=== PATIENT | male | born 1965 | race Caucasian/White ===

== ENCOUNTER 2017-11-22 21:53 | Emergency (ER) | payer BC ==
[~2017-11-22] VITALS: Ht 175.3 cm; Wt 114.1 kg
[~2017-11-22 21:53] MED LIST: CIPRO500 MG PO; DOXYCYCLINE HY100 MG PO; DULOXETINE HCL30 MG PO; ENDOCET 5-3251 EACH PO; JANUVIA100 MG PO; METFORMIN HCL1000 MG PO; METFORMIN HCL500 MG PO; MORPHINE SULFAT15 M1 PO; OMEPRAZOLE40 M1 PO; TIZANIDINE HCL4 MG PO
[2017-11-22 22:41] LABS: HEMATOCRIT 42.9 % (38.0-50.0); HEMOGLOBIN 14.9 G/DL (12.5-16.6); MCH 29.6 PG (29.0-34.0); MCHC 34.7 G/DL (30.0-36.0); MCV 85.3 FL (86-99); PLATELET COUNT 322 K/uL (156-360); RBC DIS.WIDTH-CV 12.5 % (11.8-14.6); RBC DIS.WIDTH-SD 38.3 % (39-53); RED BLOOD COUNT 5.03 M/uL (4.00-5.50); WHITE BLOOD COUNT 7.3 K/uL (4.1-10.2)
[2017-11-22 22:50] LABS: ALBUMIN 4.5 g/dL (3.2-4.8)
[2017-11-22 22:51] LABS: CHLORIDE 108 mEq/L (99-109); POTASSIUM 4.5 mEq/L (3.7-5.4); SODIUM 140 mEq/L (136-147)
[2017-11-22 22:53] LABS: GLUCOSE 125 mg/dL (70-99); TOTAL PROTEIN 7.9 g/dL (6.4-8.3)
[2017-11-22 22:55] LABS: TOTAL BILIRUBIN 0.7 mg/dL (0.0-1.0)
[2017-11-22 22:56] LABS: ALKALINE PHOSPHATASE 101 IU/L (3-129)
[2017-11-22 22:57] LABS: CREATININE 1.1 mg/dL (0.6-1.3); GFR ESTIMATE (CALCULATED) > 59 mL/min/ (58.99-99999)
[2017-11-22 22:58] LABS: AST (GOT) 49 IU/L (2-34); UREA NITROGEN (BUN) 18 mg/dL (9-23)
[2017-11-22 22:59] LABS: ALT (GPT) 73 IU/L (3-49)
[2017-11-22 23:35] LABS: APPEARANCE SL.HAZY ((CLEAR)); BILIRUBIN NEGATIVE; BLOOD LARGE; COLOR YELLOW ((YELLOW)); GLUCOSE (STRIP) NEGATIVE; KETONES NEGATIVE; LEUKOCYTES TRACE; NITRITE NEGATIVE; PROTEIN (STRIP) 30; SPECIFIC GRAVITY 1.026 (1.000-1.030); UROBILINOGEN 0.2 MG/DL (0.2-1.0)
[2017-11-22 23:44] LABS: BACTERIA NONE SEEN /HPF; EPITHELIAL CELLS RARE /HPF; MUCUS 2+ /LPF; RED BLOOD CELLS TNTC /HPF (0-5); UCUL ADDED? YES
[2017-11-23] LABS: DIRECT BILIRUBIN 0.4 mg/dL (0.0-0.3)
[2017-11-23 00:01] LABS: LIPASE 100 U/L (1.0-51.0)
[2017-11-23 01:27] VITALS: BP 163/101
== END 2017-11-23 01:27 | disposition home or self-care (01) ==
LOC: EME 21:53
DX: R19.7 Diarrhea, unspecified (principal); E27.9 Disorder of adrenal gland, unspecified; E11.9 Type 2 diabetes mellitus without complications; F32.9 Major depressive disorder, single episode, unspecified; Z87.891 Personal history of nicotine dependence; Z79.84 Long term (current) use of oral hypoglycemic drugs; Z90.49 Acquired absence of other specified parts of digestive tract; Z86.14 Personal history of Methicillin resistant Staphylococcus aureus infection
CPT/HCPCS: 74177; 80053; 81003; 82248; 83690; 85027; 87086; 99281; 99284; J7030